=== PATIENT | female | born 1945 | race Caucasian/White ===

== ENCOUNTER 2021-11-01 11:59 | Outpatient (CLI) | payer MEDICARE, SELFPAY ==
[2021-11-01 13:21] LABS: Basophils % 0.5 %; Eosinophils # 0.1 10^3/uL (0.0-0.8); Eosinophils % 0.8 %; Hematocrit 24.5 % (37.0-47.0); Lymphocytes # 1.4 10^3/uL (0.8-4.8); Lymphocytes % 22.8 %; Mean Corpuscular HGB Conc 25.7 g/dL (30.0-36.0); Mean Corpuscular Hemoglobin 18.4 pg (28.0-34.0); Mean Corpuscular Volume 71.4 fl (81-99); Mean Platelet Volume 9.9 fL (7.4-10.4); Monocytes # 0.6 10^3/uL (0.2-0.9); Monocytes % 10.6 %; Neutrophils # 3.88 10^3/uL (1.8-7.7); Nucleated Red Blood Cells % 0.3 %; Platelet Count 228 10^3/cmm (130-400); Red Blood Count 3.43 10^6/uL (4.1-5.3); Red Cell Distribution Width 23.2 % (12.1-15.1)
[2021-11-01 13:41] LABS: Hemoglobin 6.3 g/dL (11.5-15.3)
== END 2021-11-01 12:00 | disposition home or self-care (01) ==
PROVIDERS: Family Provider Nurse Practitioner Family; PCP Nurse Practitioner Family; Visit Provider Internal Medicine
DX: D50.9 Iron deficiency anemia, unspecified (principal)
CPT/HCPCS: 85025

== ENCOUNTER 2021-11-24 13:32 | Outpatient (CLI) | payer MEDICARE, SELFPAY ==
[2021-11-24 14:42] LABS: Basophils % 0.6 %; Eosinophils # 0.2 10^3/uL (0.0-0.8); Eosinophils % 2.2 %; Hematocrit 22.4 % (37.0-47.0); Lymphocytes # 2.3 10^3/uL (0.8-4.8); Lymphocytes % 31.7 %; Mean Corpuscular HGB Conc 25.4 g/dL (30.0-36.0); Mean Corpuscular Volume 66.9 fl (81-99); Mean Platelet Volume 9.9 fL (7.4-10.4); Monocytes # 0.6 10^3/uL (0.2-0.9); Monocytes % 8.9 %; Neutrophils # 4.06 10^3/uL (1.8-7.7); Neutrophils % 56.3 %; Nucleated Red Blood Cells % 0.3 %; Platelet Count 327 10^3/cmm (130-400); Red Blood Count 3.35 10^6/uL (4.1-5.3); Red Cell Distribution Width 20.9 % (12.1-15.1); White Blood Count 7.2 10^3/uL (4.0-10.0)
[2021-11-24 15:05] LABS: Hemoglobin 5.7 g/dL (11.5-15.3)
== END 2021-11-24 13:33 | disposition home or self-care (01) ==
PROVIDERS: Family Provider Nurse Practitioner Family; PCP Nurse Practitioner Family; Visit Provider Internal Medicine
DX: D50.9 Iron deficiency anemia, unspecified (principal)
CPT/HCPCS: 85025

== ENCOUNTER → 2021-12-06 10:03 | Day surgery (SDC) | payer MEDICARE, SELFPAY ==
[2021-12-06 10:14] VITALS: BP 137/89; PULSE 94; RESP 18; TEMP 36.5; O2SAT 98
[2021-12-06] MEDS: ferric carboxy (IVPB) 750 MG in sodium chloride 0.9% (100 ml) 100 ML 345 MG IV (10:25)
== END ==
PROVIDERS: Family Provider Nurse Practitioner Family; PCP Nurse Practitioner Family; Visit Provider Internal Medicine
DX: D50.9 Iron deficiency anemia, unspecified (principal)
CPT/HCPCS: 96365; J1439

== ENCOUNTER → 2021-12-13 08:53 | Day surgery (SDC) | payer MEDICARE, SELFPAY ==
[2021-12-13 09:22] VITALS: BP 178/109; PULSE 95; RESP 18; TEMP 36.4; O2SAT 98
[2021-12-13] MEDS: ferric carboxy (IVPB) 750 MG in sodium chloride 0.9% (100 ml) 100 ML 345 MG IV (09:31)
== END ==
PROVIDERS: PCP Internal Medicine; Visit Provider Internal Medicine
DX: D50.9 Iron deficiency anemia, unspecified (principal)
CPT/HCPCS: 96365; J1439

== ENCOUNTER → 2022-09-01 09:50 | Day surgery (SDC) | payer MEDICARE, MEDICAID, SELFPAY ==
[2022-09-01 09:18] VITALS: BMI 37.3
[2022-09-01] MEDS: ferric carboxy (IVPB) 750 MG in sodium chloride 0.9% (100 ml) 100 ML 300 MG IV (10:43)
[2022-09-01 10:47] VITALS: BP 183/84; PULSE 87; RESP 18; TEMP 36.2; O2SAT 95
== END ==
PROVIDERS: PCP Internal Medicine; Visit Provider Internal Medicine
DX: D50.9 Iron deficiency anemia, unspecified (principal)
CPT/HCPCS: 96365; J1439

== ENCOUNTER → 2022-09-06 09:54 | Day surgery (SDC) | payer MEDICARE, MEDICAID, SELFPAY ==
[2022-09-06] MEDS: ferric carboxy (IVPB) 750 MG in sodium chloride 0.9% (100 ml) 100 ML 280 MG IV (10:28)
[2022-09-06 10:30] VITALS: BP 177/96; PULSE 82; RESP 18; TEMP 36.6; O2SAT 97
== END ==
PROVIDERS: PCP Internal Medicine; Visit Provider Internal Medicine
DX: D50.9 Iron deficiency anemia, unspecified (principal)
CPT/HCPCS: 96365; J1439

== ENCOUNTER 2022-11-05 07:41 | Emergency (ER) | payer MEDICARE, MEDICAID, SELFPAY ==
[2022-11-05] VITALS (9 sets, daily range): BP systolic 103–219; BP diastolic 57–154; PULSE 53–92; RESP 13–24; TEMP 36.4; O2SAT 90–96; BMI 31.8
--- NOTE | 2022-11-05 07:42 | ECG_ITS ---
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 Measurements Intervals [place] Rate: 62 P: 38 [place]: 190 QRS: -18 QRSD: 101 T: 60 QT: 438 QTc: 447 Interpretive Statements SINUS RHYTHM S1-S2-S3 PATTERN, CONSISTENT WITH PULMONARY DISEASE, RVH, OR NORMAL VARIANT VOLTAGE CRITERIA FOR LVH [MEETS CRITERIA IN ONE OF: R(aVL), S(V1), R(V5), R(V5/V6)+S(V1)] Compared to ECG 06/19/2018 02:03:56 Right ventricular hypertrophy now present Left ventricular hypertrophy now present Intraventricular conduction delay no longer present T-wave abnormality no longer present Electronically Signed On 11-06-2022 19:36:53 CDT by Alejandro Ramirez M.D. [id number]
--- NOTE | 2022-11-05 07:42 | XRR_ITS ---
PROCEDURE INFORMATION: Exam: XR Chest Exam date and time: 11/05/2022 7:55 AM Age: 77 years old Clinical indication: Cough and dyspnea; Additional info: Dyspnea/cough TECHNIQUE: Imaging protocol: Radiologic exam of the chest. Views: 1 view. COMPARISON: CR XR chest 1V [id number] 06/18/2018 9:21 PM FINDINGS: Lungs: Unremarkable. No consolidation. Pleural spaces: Unremarkable. No pleural effusion. No pneumothorax. Heart/Mediastinum: Large hiatal hernia. Mildly enlarged cardiac silhouette. Bones/joints: Unremarkable. XR/XR chest 1V portable [id number] IMPRESSION: Negative for acute pulmonary disease.
[2022-11-05 08:07] LABS: Basophils # 0.1 10^3/uL (0.0-0.1); Basophils % 0.7 %; Eosinophils # 0.3 10^3/uL (0.0-0.8); Eosinophils % 3.6 %; Hemoglobin 14.3 g/dL (11.5-15.3); Lymphocytes # 2.5 10^3/uL (0.8-4.8); Lymphocytes % 33.3 %; Mean Corpuscular HGB Conc 30.4 g/dL (30.0-36.0); Mean Corpuscular Hemoglobin 25.9 pg (28.0-34.0); Mean Corpuscular Volume 85.1 fl (81-99); Monocytes # 0.4 10^3/uL (0.2-0.9); Neutrophils # 4.34 10^3/uL (1.8-7.7); Neutrophils % 57.1 %; Nucleated Red Blood Cells % 0 %; Platelet Count 205 10^3/cmm (130-400); Red Blood Count 5.52 10^6/uL (4.1-5.3); Red Cell Distribution Width 22.2 % (12.1-15.1); White Blood Count 7.6 10^3/uL (4.0-10.0)
--- NOTE | 2022-11-05 08:07 | W.ED.CHESTPA ---
HPI - Chest Pain General: Chief Complaint: Chest Pain Stated Complaint: HYPERTENSION Time Seen by Provider: 11/05/22 07:42 Source: patient Mode of arrival: ambulatory History of Present Illness: 77-year-old female presents emergency room with complaint of elevated blood pressure generalized pain she had a mild chest pain this morning with no radiation no shortness of breath or nausea. States she has not had it before. She resides in retirement she does have a history of iron deficiency anemia she is morbidly obese. She has some chronic venous stasis edema no known history of coronary disease. No recent medication changes. Blood pressure is markedly elevated on arrival here. She denies any headache. Has no focal neurologic deficits. MD complaint: chest pain Onset: during rest Pain location: substernal Pain radiation: none Quality: heaviness Relieving factors: nothing Exacerbating factors: nothing Associated symptoms: Reports leg edema; Deny abdominal pain, diaphoresis, dyspnea, fever(s), nausea, palpitations, sense of impending doom, syncope or vomiting Review of Systems Const: Denies: fever(s) or diaphoresis ENMT: Denies: throat pain, ear or mastoid pain, nasal discharge or nasal congestion Card: Reports: chest pain, edema and swelling of feet/ankles; Denies: palpitations, irregular heart rhythm or syncope Resp: Denies: dyspnea GI: Denies: abdominal pain, nausea or vomiting : Denies: flank pain, difficulty voiding, dysuria, urinary frequency or urinary urgency Skin/Breast: Denies: rash or pruritus PFS ED PFSH: Medical History (Updated 11/05/22 @ 12:41 by Joe Lennon DO) Alzheimer disease Chronic kidney disease Hypertensive heart disease without heart failure Hypothyroidism Iron deficiency anemia Morbid obesity Primary osteoarthritis Physical Exam Const: COMMON NORMALS: no acute distress GENERAL APPEARANCE: cooperative and comfortable HENMT: COMMON NORMALS: normocephalic, atraumatic and hearing grossly normal bilaterally HEAD & SCALP: normocephalic and atraumatic Resp: COMMON NORMALS: normal respiratory effort, No retractions, No use of accessory muscles and clear to auscultation bilaterally AUSCULTATION: clear to auscultation bilaterally Cardio: COMMON NORMALS: regular rate, regular rhythm and No murmurs present (Cardio) RATE: regular rate RHYTHM: regular rhythm GI: COMMON NORMALS: Soft to palpation and No hepatosplenomegaly present AUSCULTATION: Yes normoactive bowel sounds PALPATION: Yes Soft to palpation, No Tenderness to palpation present (GI), No Guarding due to palpation present (GI) and Yes No hepatosplenomegaly present Extremity: COMMON NORMALS: normal to inspection, capillary refill normal and no calf tenderness GENERAL: Yes edema (2+ edema in the feet, ankles and lower leg midway to the knee) Skin: COMMON NORMALS: no rashes or lesions noted GENERAL SKIN EXAM: no rashes or lesions noted Course Vital Signs: Vital signs: Vital Signs Temperature 97.6 F 11/05/22 07:42 Pulse Rate 92 11/05/22 14:10 Respiratory Rate 18 11/05/22 14:10 Blood Pressure 165/93 11/05/22 14:10 Pulse Oximetry 93 11/05/22 14:10 Oxygen Delivery Me thod 11/05/22 07:42 MDM - Chest Pain Medical Decision Making Labs imaging and EKG reviewed. EKG showed no acute changes. Discussed with patient will adjust blood pressure medications increase amlodipine to 10 mg daily and add metoprolol 25 p.o. daily. follow-up with her primary care doc within the next week. Return if she has further problems. Medical Records I reviewed the patient's medical records. Lab Data I reviewed the patient's lab results. 11/05/22 07:55 11/05/22 07:55 Radiology Impressions Chest X-Ray 11/05/22 07:42 IMPRESSION: Negative for acute pulmonary disease. Laboratory Results WBC 7.6 10^3/uL (4.0-10.0) 11/05/22 07:55 RBC 5.52 10^6/uL (4.1-5.3) H 11/05/22 07:55 Hgb 14.3 g/dL (11.5-15.3) 11/05/22 07:55 Hct 47.0 % (37.0-47.0) 11/05/22 07:55 MCV 85.1 fl (81-99) 11/05/22 07:55 MCH 25.9 pg (28.0-34.0) L 11/05/22 07:55 MCHC 30.4 g/dL (30.0-36.0) 11/05/22 07:55 RDW 22.2 % (12.1-15.1) H 11/05/22 07:55 Plt Count 205 10^3/cmm (130-400) 11/05/22 07:55 MPV 11.0 fL (7.4-10.4) H 11/05/22 07:55 Neut % (Auto) 57.1 % 11/05/22 07:55 Lymph % (Auto) 33.3 % 11/05/22 07:55 [place] % (Auto) 5.0 % 11/05/22 07:55 Eos % (Auto) 3.6 % 11/05/22 07:55 Baso % (Auto) 0.7 % 11/05/22 07:55 Neut # (Auto) 4.34 10^3/uL (1.8-7.7) 11/05/22 07:55 Lymph # (Auto) 2.5 10^3/uL (0.8-4.8) 11/05/22 07:55 [place] # (Auto) 0.4 10^3/uL (0.2-0.9) 11/05/22 07:55 Eos # (Auto) 0.3 10^3/uL (0.0-0.8) 11/05/22 07:55 Baso # (Auto) 0.1 10^3/uL (0.0-0.1) 11/05/22 07:55 Nucleated RBC % (auto) 0 % 11/05/22 07:55 Nucleated RBCs # 0.0 /100WBC 11/05/22 07:55 Sodium 139 mmol/L (136-145) 11/05/22 07:55 Potassium 4.5 mmol/L (3.5-5.1) 11/05/22 07:55 Chloride 102 mmol/L (98-107) 11/05/22 07:55 Carbon Dioxide 28 mmol/L (22-29) 11/05/22 07:55 Anion Gap 13.5 (5-19) 11/05/22 07:55 BUN 14 mg/dL (8-23) 11/05/22 07:55 Creatinine 0.8 mg/dL (0.5-0.9) 11/05/22 07:55 GFR Calculation Not Reportable 11/05/22 07:55 Glucose 105 mg/dL (65-115) 03/11/23 07:55 Calculated Osmolality 289 mOsm/kg (285-295) 11/05/22 07:55 Calcium 9.7 mg/dL (8.5-10.5) 11/05/22 07:55 Total Bilirubin 0.2 mg/dL (0.15-1.2) 11/05/22 07:55 AST 17 U/L (0-32) 11/05/22 07:55 ALT 11 U/L (0-33) 11/05/22 07:55 Alkaline Phosphatase 88 U/L (35-105) 11/05/22 07:55 Troponin T Gen 5 ng/L 20 ng/L (0-10) H 11/05/22 07:55 Troponin T Baseline 16 ng/L (0-10) H 11/05/22 09:03 Troponin T 120 Minute 16.22 ng/L (0-10) H 11/05/22 11:34 Delta Troponin T 0.22 ABS# (0-10) 11/05/22 11:34 Total Protein 7.4 g/dL (6.6-8.7) 11/05/22 07:55 Albumin 4.0 g/dL (3.5-5.2) 11/05/22 07:55 Globulin 3.4 g/dL (1.3-4.6) 11/05/22 07:55 Discharge Plan Discharge Patient Disposition: Home Clinical Impression: Atypical chest pain, Benign essential HTN Condition: Stable Prescriptions: New amlodipine 10 mg tablet 10 mg PO DAILY Qty: 30 0RF Toprol XL 25 mg tablet extended release 24 hr 25 mg PO DAILY Qty: 30 0RF Discontinued amlodipine 5 mg Tablet 5 mg PO DAILY No Action tramadol 50 mg tablet 50 mg PO Q12H PRN (Reason: Pain) levothyroxine 125 mcg Tablet 125 mcg PO DAILY nystatin-triamcinolone 100,000-0.1 unit/g-% cream 1 applic TOPICAL TID albuterol sulfate 90 mcg/actuation HFA aerosol inhaler 2 puff INHALATION Q4H PRN (Reason: Wheezing) acetaminophen 325 mg Tablet 650 mg PO Q4H PRN (Reason: Pain) acetaminophen 325 mg Tablet 650 mg PO BID Senna-S 8.6-50 mg Tablet 1 tab-cap PO DAILY PRN (Reason: Constipation) Milk of Magnesia 400 mg/5 mL Suspension 30 ml PO DAILY PRN (Reason: Constipation) bisacodyl 10 mg Suppository 10 mg NE DAILY PRN (Reason: Constipation) Tums 200 mg calcium (500 mg) Tablet,Chewable 200 mg PO QID PRN (Reason: Heartburn) Enema 19-7 gram/118 mL Enema 118 ml NE DAILY PRN (Reason: Constipation) Nyamyc 100,000 unit/gram Powder 1 applic TOPICAL Q12H PRN (Reason: Rash) Miralax 17 gram/dose Powder 17 g PO DAILY PRN (Reason: Constipation) duloxetine 30 mg Capsule, Delayed Rel Sprinkle 30 mg PO DAILY Discharge Orders: Discharge ED (Routine); Ordered 11/05/22 Ordered By: Joe Lennon Referrals: Sean Warren DO [Primary Care Provider] - Discharge Diet: Usual diet Discharge Activity: Increase activity as tolerated Patient Instructions: Opioid Safety, Pain Management Activity Restrictions/Additional Instructions: You are seen today for chest pain. Your EKG and cardiac enzymes did not show any evidence of acute myocardial infarction. Blood pressure is elevated will increase amlodipine and add Toprol-XL and recheck with your primary care doctor within the week. Coding Level of Care Code ED Instructional Technology Teacher for Davion Pereira
[2022-11-05] MEDS: hydroCHLOROthiazide 25 mg Tablet 12.5 MG PO (08:12)
[2022-11-05] MEDS: hyDRALAzine 20 mg/mL INJ 1 mL 10 MG IVP (08:12)
[2022-11-05] MEDS: lisinopril 20 mg Tablet PO (08:12)
[2022-11-05] MEDS: amlodipine 5 mg Tablet PO (08:13)
[2022-11-05 08:29] LABS: Alanine Aminotransferase 11 U/L (0-33); Alkaline Phosphatase 88 U/L (35-105); Anion Gap 13.5 (5-19); Aspartate Amino Transferase 17 U/L (0-32); Blood Urea Nitrogen 14 mg/dL (8-23); Calcium 9.7 mg/dL (8.5-10.5); Carbon Dioxide 28 mmol/L (22-29); Chloride 102 mmol/L (98-107); Globulin 3.4 g/dL (1.3-4.6); Glucose 105 mg/dL (65-115); Osmolality Calculated 289 mOsm/kg (285-295); Potassium 4.5 mmol/L (3.5-5.1); Sodium 139 mmol/L (136-145); Total Bilirubin 0.2 mg/dL (0.15-1.2); Total Protein 7.4 g/dL (6.6-8.7)
[2022-11-05 09:28] LABS: Troponin(5th) Baseline 16 ng/L (0-10)
--- NOTE | 2022-11-05 10:11 | ECG_ITS ---
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 Measurements Intervals [place] Rate: 73 P: 28 [place]: 188 QRS: -33 QRSD: 103 T: 62 QT: 419 QTc: 464 Interpretive Statements SINUS RHYTHM WITH SINUS ARRHYTHMIA VOLTAGE CRITERIA FOR LVH [MEETS CRITERIA IN ONE OF: R(aVL), S(V1), R(V5), R(V5/V6)+S(V1)] Compared to ECG 11/05/2022 08:11:27 Right ventricular hypertrophy no longer present Electronically Signed On 11-06-2022 23:15:46 CDT by Alejandro Ramirez M.D. [id number]
[2022-11-05 12:04] LABS: Troponin T (5th) Once 20 ng/L (0-10)
[2022-11-05 12:10] LABS: Troponin 5 2HR 16.22 ng/L (0-10)
[2022-11-05 12:13] LABS: Troponin 5 2HR Delta 0.22 ABS# (0-10)
== END 2022-11-05 14:16 | disposition home or self-care (01) ==
PROVIDERS: Emergency Provider Family Medicine; PCP Internal Medicine
DX: R07.89 Other chest pain (principal); I12.9 Hypertensive chronic kidney disease with stage 1 through stage 4 chronic kidney disease, or unspecified chronic kidney disease; N18.9 Chronic kidney disease, unspecified; E03.9 Hypothyroidism, unspecified; E66.01 Morbid (severe) obesity due to excess calories; Z68.31 Body mass index [BMI] 31.0-31.9, adult
CPT/HCPCS: 71045; 80053; 84484; 85025; 93005; 96374; 99285; J0360

== ENCOUNTER 2024-10-17 21:06 | Inpatient (IN) | payer MEDICARE, MEDICAID, SELFPAY ==
[2024-10-17] VITALS (7 sets, daily range): BP systolic 157–176; BP diastolic 83–101; PULSE 103–111; RESP 13–24; O2SAT 92–95; BMI 17.6
--- NOTE | 2024-10-17 21:11 | XRR_ITS ---
PROCEDURE INFORMATION: Exam: XR Chest Exam date and time: 10/17/2024 9:16 PM Age: 79 years old Clinical indication: Shortness of breath; Additional info: Altered mental status TECHNIQUE: Imaging protocol: Radiologic exam of the chest. Views: 1 view. COMPARISON: CR XR chest 1V portable [id number] 11/05/2022 7:55 AM FINDINGS: Lungs: Mild pulmonary edema. Bibasilar lung opacities could relate to atelectasis, effusions, or pneumonia. Pleural spaces: No pneumothorax. Heart/Mediastinum: Mildly enlarged pericardial silhouette. Bones/joints: Unremarkable. XR/XR chest 1V portable [id number] IMPRESSION: 1. Bibasilar lung opacities could relate to atelectasis, effusions, or pneumonia, worse on the left. 2. Mild pulmonary edema. 3. Mildly enlarged pericardial silhouette.
--- NOTE | 2024-10-17 21:15 | ECG_ITS ---
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1945 Requested By: Roderick Carbone Order Number: [id number] Enedina MD: RIKKI SIDDIQUI Measurements Intervals [place] Rate: 105 P: 39 NE: 160 QRS: -37 QRSD: 112 T: 71 QT: 345 QTc: 457 Interpretive Statements SINUS TACHYCARDIA MODERATE VOLTAGE CRITERIA FOR LVH, CONSIDER NORMAL VARIANT [MEETS CRITERIA IN ONE OF: R(aVL), S(V1), R(V5), R(V5/V6)+S(V1)] INFERIOR MYOCARDIAL INFARCTION , PROBABLY OLD [40+ ms Q WAVE AND/OR ST/T ABNORMALITY IN II/aVF] PROBABLE ANTEROLATERAL MYOCARDIAL INFARCTION , PROBABLY OLD [35 ms Q WAVE IN I/aVL/V3-V6] Compared to ECG 11/05/2022 10:11:36 Myocardial infarct finding now present Sinus rhythm no longer present Sinus arrhythmia no longer present Electronically Signed On 10-22-2024 23:44:54 CENTER DIRECTOR LEAD TEACHER by RIKKI SIDDIQUI [id number]
--- NOTE | 2024-10-17 21:15 | W.ED.AMS ---
HPI - Altered Mental Status General: Chief Complaint: Fever Stated Complaint: FEVER Time Seen by Provider: 10/17/24 21:08 Source: EMS Mode of arrival: EMS Limitations: altered mental status History of Present Illness: Patient brought in from custodial by EMS with complaints of altered mental status and fever. Patient does have a diagnosis of Alzheimer's dementia but per nursing is usually alert and oriented x 4. Today patient is confused and cannot answer most questions appropriately. Patient does have a history of UTIs per EMS. Related Data Home Medications ?Medication ?Instructions ?Recorded ?Confirmed albuterol sulfate 90 mcg/actuation 2 puff inhalation Q4H PRN Wheezing 12/06/21 11/05/22 aerosol inhaler levothyroxine 125 mcg tablet 125 mcg PO DAILY 12/06/21 11/05/22 nystatin-triamcinolone 100,000 1 applic topical TID 12/06/21 11/05/22 unit/g-0.1 % topical cream tramadol 50 mg tablet 50 mg PO Q12H PRN Pain 12/06/21 11/05/22 acetaminophen 325 mg tablet 650 mg PO BID 11/05/22 11/05/22 acetaminophen 325 mg tablet 650 mg PO Q4H PRN Pain 11/05/22 11/05/22 bisacodyl 10 mg rectal suppository 10 mg AK DAILY PRN Constipation 11/05/22 11/05/22 calcium carbonate (Tums) 200 mg PO QID PRN Heartburn 11/05/22 11/05/22 duloxetine 30 mg capsule,delayed 30 mg PO DAILY 11/05/22 11/05/22 release sprinkle magnesium hydroxide 400 mg/5 mL 30 ml PO DAILY PRN Constipation 11/05/22 11/05/22 oral suspension (Milk of Magnesia) nystatin 100,000 unit/gram topical 1 applic topical Q12H PRN Rash 11/05/22 11/05/22 powder (Nyamyc) polyethylene glycol 3350 17 17 g PO DAILY PRN Constipation 11/05/22 11/05/22 gram/dose oral powder (Miralax) sennosides 8.6 mg-docusate sodium 1 tab-cap PO DAILY PRN Constipation 11/05/22 11/05/22 50 mg tablet (Senna-S) sodium phosphates 19 gram-7 118 ml AK DAILY PRN Constipation 11/05/22 11/05/22 gram/118 mL enema (Enema) Previous Rx's ?Medication ?Instructions ?Recorded amlodipine 10 mg tablet 10 mg PO DAILY #30 tabs 11/05/22 metoprolol succinate 25 mg 25 mg PO DAILY #30 tabs 11/05/22 tablet,extended release 24 hr (Toprol XL) Allergies Allergy/AdvReac Type Severity Reaction Status Date / Time No Known Allergies Allergy Verified 09/06/22 07:33 Review of Systems General: Reports: ROS unobtainable due to mental status PFSH ED PFSH: Medical History Iron deficiency anemia Alzheimer disease Hypothyroidism Chronic kidney disease Morbid obesity Hypertensive heart disease without heart failure Primary osteoarthritis Physical Exam Const: COMMON NORMALS: no acute distress, average body habitus, healthy appearing, alert and well nourished HENMT: COMMON NORMALS: normocephalic, atraumatic, hearing grossly normal bilaterally, external ears normal, Normal external nose present, moist oral mucous membranes and oropharynx normal HEAD & SCALP: normocephalic and atraumatic NOSE: Normal external nose present EXTERNAL EAR: Yes external ears normal Neck/C-Spine: COMMON NORMALS: no JVD Chest: COMMONS NORMALS: normal inspection of the chest and normal palpation of entire chest wall Resp: COMMON NORMALS: normal respiratory effort, No retractions, No use of accessory muscles and clear to auscultation bilaterally AUSCULTATION: clear to auscultation bilaterally Cardio: COMMON NORMALS: no JVD, regular rate, regular rhythm, S1 normal heart sound present, S2 normal heart sound present, No gallops present (Cardio), No clicks present (Cardio), No murmurs present (Cardio) and No rub (Cardio) RATE: regular rate RHYTHM: regular rhythm HEART SOUNDS: S1 normal heart sound present and S2 normal heart sound present GI: COMMON NORMALS: Normal to inspection, nondistended, normoactive bowel sounds present, Soft to palpation, non-tender, No hepatosplenomegaly present and no masses PALPATION: Yes Soft to palpation and Yes No hepatosplenomegaly present Extremity: NARRATIVE EXTREMITY EXAM: 1+ pitting edema bilateral lower extremities Neuro: SENSORIUM/ORIENTATION: Yes alert Course Vital Signs: Vital signs: Vital Signs Pulse Rate 104 H 10/17/24 23:00 Respiratory Rate 13 10/17/24 23:00 Blood Pressure 165/83 10/17/24 23:00 Pulse Oximetry 93 10/17/24 23:00 Oxygen Delivery Me thod Nasal Cannula 10/17/24 22:17 Oxygen Flow Rate 1 10/17/24 22:17 MDM - Altered Mental Status Medical Decision Making X-ray shows bibasilar lung opacities consistent with atelectasis effusion or pneumonia, mild pulmonary edema, white blood cell count 16.7, baseline troponin 14, TSH 1.3, lactic acid 2.2, urinalysis positive for white blood cells leukocyte Estrace, negative for influenza RSV and COVID. Patient was given 3.375 g of Zosyn, blood cultures and urine cultures obtained. Discussed patient with Dr. Madrid we will place patient in [facility] for further evaluation treatment. Medical Records I reviewed the patient's medical records. Lab Data I reviewed the patient's lab results. 10/17/24 21:47 10/17/24 22:49 Radiology Impressions Chest X-Ray 10/17/24 21:11 IMPRESSION: 1. Bibasilar lung opacities could relate to atelectasis, effusions, or pneumonia, worse on the left. 2. Mild pulmonary edema. 3. Mildly enlarged pericardial silhouette. Laboratory Results WBC 16.70 10^3/uL (3.29-11.43) H 10/17/24 21:47 RBC 4.62 10^6/uL (3.85-5.65) 10/17/24 21:47 Hgb 12.10 g/dL (11.27-16.99) 10/17/24 21:47 Hct 40.7 % (36-47) 10/17/24 21:47 MCV 88.1 fl (85-98) 10/17/24 21:47 MCH 26.2 pg (27-33) L 10/17/24 21:47 MCHC 29.7 g/dL (30-55) L 10/17/24 21:47 RDW 18.9 % (12.1-15.1) H 10/17/24 21:47 Plt Count 181 10^3/cmm (157-399) 10/17/24 21:47 MPV 11.7 fL (7.4-10.4) H 10/17/24 21:47 Neut % (Auto) 88.3 % 10/17/24 21:47 Lymph % (Auto) 5.8 % 10/17/24 21:47 [place] % (Auto) 4.9 % 10/17/24 21:47 Eos % (Auto) 0.2 % 10/17/24 21:47 Baso % (Auto) 0.2 % 10/17/24 21:47 Neut # (Auto) 14.73 10^3/uL (1.8-7.7) H 10/17/24 21:47 Lymph # (Auto) 1.0 10^3/uL (0.8-4.8) 10/17/24 21:47 [place] # (Auto) 0.8 10^3/uL (0.2-0.9) 10/17/24 21:47 Eos # (Auto) 0.0 10^3/uL (0.0-0.8) 10/17/24 21:47 Baso # (Auto) 0.0 10^3/uL (0.0-0.1) 10/17/24 21:47 Nucleated RBC % (auto) 0 % 10/17/24 21:47 Nucleated RBCs # 0.0 /100WBC 10/17/24 21:47 Sodium 134 mmol/L (136-145) L 10/17/24 22:49 Potassium 4.4 mmol/L (3.5-5.1) 10/17/24 22:49 Chloride 96 mmol/L (98-107) L 10/17/24 22:49 Carbon Dioxide 25 mmol/L (22-29) 10/17/24 22:49 Anion Gap 17.4 (5-19) 10/17/24 22:49 BUN 13 mg/dL (8-23) 10/17/24 22:49 Creatinine 0.9 mg/dL (0.5-0.9) 10/17/24 22:49 GFR Calculation Not Reportable 10/17/24 22:49 Glucose 231 mg/dL (65-115) H 10/17/24 22:49 Calculated Osmolality 285 mOsm/kg (285-295) 10/17/24 22:49 Lactic Acid 2.2 mmol/L (0.5-2.2) 10/17/24 21:47 Calcium 9.9 mg/dL (8.5-10.5) 10/17/24 22:49 Magnesium 1.8 mg/dL (1.7-2.3) 10/17/24 22:49 Total Bilirubin 0.4 mg/dL (0.15-1.2) 10/17/24 22:49 AST 13 U/L (0-32) 10/17/24 22:49 ALT 9 U/L (0-33) 10/17/24 22:49 Alkaline Phosphatase 88 U/L (35-105) 10/17/24 22:49 Troponin T Baseline 14 ng/L (0-10) H 10/17/24 21:47 Total Protein 7.5 g/dL (6.6-8.7) 10/17/24 22: Albumin 4.2 g/dL (3.5-5.2) 10/17/24 22:49 Globulin 3.3 g/dL (1.3-4.6) 10/17/24 22:49 Procalcitonin 0.26 ng/mL (0-0.5) 10/17/24 22:49 TSH 1.36 uIU/mL (0.27-4.20) 10/17/24 22:49 Urine Color Yellow (Yellow) 10/17/24 21:41 Urine Appearance Turbid (CLEAR) A 10/17/24 21:41 Urine pH 6.5 (5-7) 10/17/24 21:41 Ur Specific [place] 1.018 (1.005-1.030) 10/17/24 21:41 Urine Protein Trace (Negative) A 10/17/24 21:41 Urine Glucose (UA) Trace (Normal) H 10/17/24 21:41 Urine Ketones Negative (Negative) 10/17/24 21: Urine Blood 1+ (Negative) A 10/17/24 21: Urine Nitrate Negative (Negative) 10/17/24 21: Urine Bilirubin Negative (Negative) 10/17/24 21: Urine Urobilinogen 1.0 mg/dL (Negative) 10/17/24 21:41 Ur Leukocyte Esterase 1+ (Negative) A 10/17/24 21:41 Urine RBC 3-5 /hpf (0-2) 10/17/24 21:41 Urine WBC 40-55 /hpf (0-5) H 02/20/25 21:41 Ur Squamous Epith Cells None /hpf (0-5) 10/17/24 21:41 Amorphous Sediment Not Reportable 10/17/24 21:41 Urine Bacteria 4+ /hpf (NONE) H 10/17/24 21:41 Influenza A (PCR) Negative (Negative) 10/17/24 22:15 Influenza Type B (PCR) Negative (Negative) 10/17/24 22:15 RSV (PCR) Negative (Negative) 10/17/24 22:15 SARS-CoV-2 (PCR) Negative (Negative) 10/17/24 22:15 All radiology interpretation(s) finalized by discharge Discharge Plan Discharge Patient Disposition: Admitted As Inpatient Clinical Impression: Acute alteration in mental status Bilateral pneumonia Qualifiers: Pneumonia type: due to unspecified organism Lung location: unspecified part of lung Qualified Code(s): J18.9 - Pneumonia, unspecified organism Urinary tract infection Qualifiers: Urinary tract infection type: acute cystitis Hematuria presence: with hematuria Qualified Code(s): N30.01 - Acute cystitis with hematuria Condition: Stable Coding Level of Care Code ED Pipe Bowl Paint Trimmer for Davion Pereira
[2024-10-17 21:58] LABS: Bilirubin Urine Negative (Negative); Blood Urine 1+ (Negative); Glucose Urine UA Trace (Normal); Ketones Urine Negative (Negative); Leukocyte Esterase Urine 1+ (Negative); Nitrate Urine Negative (Negative); Protein Urine Trace (Negative); Specific Gravity, Urine 1.018 (1.005-1.030); Urine Appearance Turbid (CLEAR); Urine Color Yellow (Yellow); pH Urine 6.5 (5-7)
[2024-10-17 22:16] LABS: Add Urine Microscopic? YES; Bacteria Urine 4+ /hpf; UA Manual Slide Review YES; UA Slide Review UA Slide Review Perf; WBC Urine 40-55 /hpf (0-5)
[2024-10-17 22:16] LABS: Basophils % 0.2 %; Eosinophils % 0.2 %; Hematocrit 40.7 % (36-47); Lymphocytes % 5.8 %; Mean Corpuscular HGB Conc 29.7 g/dL (30-55); Mean Corpuscular Hemoglobin 26.2 pg (27-33); Mean Corpuscular Volume 88.1 fl (85-98); Mean Platelet Volume 11.7 fL (7.4-10.4); Monocytes # 0.8 10^3/uL (0.2-0.9); Monocytes % 4.9 %; Neutrophils # 14.73 10^3/uL (1.8-7.7); Neutrophils % 88.3 %; Nucleated Red Blood Cells % 0 %; Platelet Count 181 10^3/cmm (157-399); Red Blood Count 4.62 10^6/uL (3.85-5.65); Red Cell Distribution Width 18.9 % (12.1-15.1); Troponin(5th) Baseline 14 ng/L (0-10)
[2024-10-17 22:19] LABS: Add Urine Culture? Yes
[2024-10-17 22:20] LABS: Lactic Sepsis W/Reflex 2.2 mmol/L (0.5-2.2)
[2024-10-17 22:57] LABS: Influenza A NEGATIVE (Negative); Influenza B NEGATIVE (Negative); Respiratory Syncytial Virus Ce NEGATIVE (Negative); SARS-CoV-2 PCR NEGATIVE (Negative)
[2024-10-17 23:35] LABS: Procalcitonin 0.26 ng/mL (0-0.5); Thyroid Stimulating Hormone 1.36 uIU/mL (0.27-4.20)
[2024-10-17 23:41] LABS: Reflex Lactate Order REFLEX LACTIC ORDERD
[2024-10-17 23:46] LABS: Alanine Aminotransferase 9 U/L (0-33); Albumin Level 4.2 g/dL (3.5-5.2); Alkaline Phosphatase 88 U/L (35-105); Anion Gap 17.4 (5-19); Aspartate Amino Transferase 13 U/L (0-32); Blood Urea Nitrogen 13 mg/dL (8-23); Calcium 9.9 mg/dL (8.5-10.5); Carbon Dioxide 25 mmol/L (22-29); Chloride 96 mmol/L (98-107); Creatinine Clr Calc Pharmacy 38.3737; Globulin 3.3 g/dL (1.3-4.6); Glucose 231 mg/dL (65-115); Magnesium 1.8 mg/dL (1.7-2.3); Osmolality Calculated 285 mOsm/kg (285-295); Potassium 4.4 mmol/L (3.5-5.1); Sodium 134 mmol/L (136-145); Total Bilirubin 0.4 mg/dL (0.15-1.2); Total Protein 7.5 g/dL (6.6-8.7)
[2024-10-17] MEDS: piperacillin-tazobactam 3.375 GM in sodium chloride 0.9% (plus) 50 ML IV (23:54)
--- NOTE | 2024-10-17 23:56 | PM.HP ---
Providers/Chief Complaint Primary Care Provider: Sean Warren DO Chief Complaint: FEVER History of Present Illness Kelsi Zamora is a 79 year old female with history of hypertension, hypothyroidism, resident of [facility] presented for fever lethargy fatigue generalized weakness. Patient refused her dinner because she was very lethargic. She was sent to the hospital for further evaluation. Temperature noted was around 101 at the senior living, she is tachypneic tachycardic with leukocytosis without endorgan damage, she meets criteria for sepsis, I will give her septic bolus she has been given antibiotics blood and urine culture taken as per her weight she would need 1300 mL of septic bolus however considering signs of pulm edema on chest x-ray I will give her 500 mL IV fluids only, she is normotensive, oriented to herself only no skin mottling UA consistent with UTI: Caballero catheter has been placed Review of Systems General: Reports: ROS unobtainable due to mental status Const: Reports: fever(s) Eyes: Denies: change in vision ENMT: Denies: throat pain Card: Denies: chest pain Resp: Reports: dyspnea Medications/Allergies Home Medications ?Medication ?Instructions ?Recorded ?Confirmed ?Last Taken ?Type albuterol sulfate 90 mcg/actuation 2 puff inhalation Q4H PRN Wheezing 12/06/21 11/05/22 09/06/22 History aerosol inhaler levothyroxine 125 mcg tablet 125 mcg PO DAILY 12/06/21 11/05/22 09/06/22 History nystatin-triamcinolone 100,000 1 applic topical TID 12/06/21 11/05/22 09/06/22 History unit/g-0.1 % topical cream tramadol 50 mg tablet 50 mg PO Q12H PRN Pain 12/06/21 11/05/22 09/06/22 History acetaminophen 325 mg tablet 650 mg PO BID 11/05/22 11/05/22 Unknown History acetaminophen 325 mg tablet 650 mg PO Q4H PRN Pain 11/05/22 11/05/22 Unknown History amlodipine 10 mg tablet 10 mg PO DAILY #30 tabs 11/05/22 Unknown Rx bisacodyl 10 mg rectal suppository 10 mg ID DAILY PRN Constipation 11/05/22 11/05/22 Unknown History calcium carbonate (Tums) 200 mg PO QID PRN Heartburn 11/05/22 11/05/22 Unknown History duloxetine 30 mg capsule,delayed 30 mg PO DAILY 11/05/22 11/05/22 Unknown History release sprinkle magnesium hydroxide 400 mg/5 mL 30 ml PO DAILY PRN Constipation 11/05/22 11/05/22 Unknown History oral suspension (Milk of Magnesia) metoprolol succinate 25 mg 25 mg PO DAILY #30 tabs 11/05/22 Unknown Rx tablet,extended release 24 hr (Toprol XL) nystatin 100,000 unit/gram topical 1 applic topical Q12H PRN Rash 11/05/22 11/05/22 Unknown History powder (Nyamyc) polyethylene glycol 3350 17 17 g PO DAILY PRN Constipation 11/05/22 11/05/22 Unknown History gram/dose oral powder (Miralax) sennosides 8.6 mg-docusate sodium 1 tab-cap PO DAILY PRN Constipation 11/05/22 11/05/22 Unknown History 50 mg tablet (Senna-S) sodium phosphates 19 gram-7 118 ml ID DAILY PRN Constipation 11/05/22 11/05/22 Unknown History gram/118 mL enema (Enema) Allergies Allergy/AdvReac Type Severity Reaction Status Date / Time No Known Allergies Allergy Verified 09/06/22 07:33 PFSH Acute PFSH: Medical History Major depressive disorder Overactive bladder Constipation Edema Pain, unspecified Iron deficiency anemia Alzheimer disease Hypothyroidism Chronic kidney disease Morbid obesity Hypertensive heart disease without heart failure Primary osteoarthritis Vitals/I&O/Wt Last Vital Signs Pulse 104 H 10/17/24 23:00 Resp 13 10/17/24 23:00 BP 165/83 10/17/24 23:00 Pulse Ox 93 10/17/24 23:00 O2 Del Method Nasal Cannula 10/17/24 22:17 O2 Flow Rate 1 10/17/24 22:17 10/17/24 10/17/24 10/18/24 14:59 22:59 06:59 Intake Total 0 / 0 Balance 0 / 0 Weight last 48 hrs Weight 45.359 kg Physical Exam Narrative: Patient is oriented to herself Hypertensive Currently on room air No active focal deficit Very sensitive to touch to her lower extremities Nonpitting edema Abdomen distended nontender No audible stridor S1, S2 tachycardia Patient able to follow commands however short attention span Patient not able to tell me her date of stating that she is not sure why she was sent to the hospital Complaining of hurting all over Sepsis: Is patient septic: Yes Focused sepsis exam performed: Yes Focused sepsis exam: Metabolic encephalopathy Cap refill less than 3 seconds Peripheral pulses intact no neurovascular compromise No sign of stroke No skin mottling Patient is tachycardic heart rate 104 sinus tachycardia Hypertensive Patient is currently on room air at the time of my evaluation Date exam was performed: 10/18/24 Time exam was performed: 00:20 Data 10/17/24 21:47 10/17/24 22:49 A&P Assessment and plan (1) Urinary tract infection: Qualifiers: Hematuria presence: with hematuria Urinary tract infection type: acute cystitis Qualified Code(s): N30.01 - Acute cystitis with hematuria (2) Acute alteration in mental status: (3) CHF exacerbation: (4) Bilateral pneumonia: Qualifiers: Lung location: unspecified part of lung Pneumonia type: due to unspecified organism Qualified Code(s): J18.9 - Pneumonia, unspecified organism (5) Sepsis: (6) New onset of congestive heart failure: Plan Altered mental status Metabolic encephalopathy related to sepsis, UTI and possible pneumonia Confused AO x [address] head Sepsis Criteria met with tachypnea tachycardia fever at the senior living Source seems to be UTI Considering CHF, only 500 mL IV fluid bolus given New onset CHF I do not see any previous echo: She has pulm edema, enlarged cardiac silhouette some edema of lower extremities Monitor urine output, start low-dose Lasix Requested echo Troponin with serial EKGs EKG not showing infarctive changes UTI Start ceftriaxone Abnormal UA noted Caballero catheter placed in the ER Possible pneumonia? I do believe her x-ray bilateral infiltrates are related to CHF, will request procalcitonin Will keep patient on doxycycline along ceftriaxone Respiratory panel is negative DNR/DNI as per the records from the senior living Will keep her on cardiac diet DVT prophylaxis: Heparin PDMP PDMP Reviewed: Not Reviewed Attestations Medical Necessity Statement*: More than 2 midnights anticipated for management evaluation of sepsis, new onset CHF Diagnoses Urinary tract infection N30.01 Hematuria presence: with hematuria Urinary tract infection type: acute cystitis Acute alteration in mental status R41.82 CHF exacerbation I50.9 Bilateral pneumonia J18.9 Lung location: unspecified part of lung Pneumonia type: due to unspecified organism Sepsis A41.9 New onset of congestive heart failure I50.9
[2024-10-18] VITALS (13 sets, daily range): BP systolic 152–181; BP diastolic 83–130; PULSE 86–105; RESP 11–23; TEMP 36.6–37; O2SAT 91–100
[2024-10-18 00:12] LABS: Troponin 5 2HR 13.59 ng/L (0-10)
[2024-10-18 00:15] LABS: Lactic Acid level (Lactate) 2.2 mmol/L (0.5-2.2)
--- NOTE | 2024-10-18 00:15 | USCV_ITS ---
Kelsi Zamora Age: 79 Gender: F : 1945 Exam Date: 10/18/2024 00:49 Ordering Phys: Jase Madrid MD Technologist: PAULA Exam Location: [facility] [place] Indication: HTN, fever 101F, letharby fatigue, weakness, obesity BP: 176 / 101 HR: 93 Rhythm: Sinus Technical Quality: Adequate MEASUREMENTS (Male / Female) Normal Values 2D ECHO LV Diastolic Diameter PLAX 4.0 cm 4.2 - 5.9 / 3.9 - 5.3 cm IVS Diastolic Thickness 1.6 cm 0.6 - 1.0 / 0.6 - 0.9 cm IVS Systolic Thickness 2.0 cm LVPW Diastolic Thickness 1.3 cm 0.6 - 1.0 / 0.6 - 0.9 cm LVPW Systolic Thickness 1.6 cm LVOT Diameter 1.9 cm LV Ejection Fraction 2D Teich 55.9 % LV Ejection Fraction MOD 4C 59.1 % LV Ejection Fraction MOD 2C 40.9 % LV Ejection Fraction 2C AL 40.6 % LA Diameter 3.6 cm Aorta at Sinotubular Diameter 2.9 cm IVC Diameter 1.1 cm M-MODE LA Ao Ratio MM 1.1 AV Cusp Separation MM 1.8 cm DOPPLER AV Peak Velocity 147.0 cm/s LVOT Peak Velocity 77.0 cm/s AV Area Cont Eq vti 1.8 cm squared AV Area Cont Eq pk 1.5 cm squared MV Peak Velocity 134.0 cm/s MV Area PHT 6.8 cm squared Mitral E to A Ratio 0.6 TV Peak E Velocity 78.0 cm/s FINDINGS Left Ventricle Left ventricle is normal in size. LV systolic function is normal with EF 55-60%. No regional wall motion abnormalities are seen. Grade 1 diastolic dysfunction. Right Ventricle Normal in size and function Right Atrium Normal in size Left Atrium Normal in size Mitral Valve Structurally normal mitral valve. Mild mitral regurgitation. Aortic Valve Structurally normal aortic valve. No significant stenosis or regurgitation. Tricuspid Valve Insufficient TR jet to calculate RVSP Pulmonic Valve Not well visualized Pericardium normal Aorta Normal in size IVC Not well visualized CONCLUSIONS LV systolic function is normal with EF of 55-60% Grade 1 diastolic dysfunction Mild mitral regurgitation. Andrés Freeman MD (Electronically Signed) Final Date: 19 October 2024 15:30 S
--- NOTE | 2024-10-18 00:17 | CTR_ITS ---
PROCEDURE INFORMATION: Exam: CT Head Without Contrast Exam date and time: 10/18/2024 1:31 AM Age: 79 years old Clinical indication: Altered mental status/memory loss TECHNIQUE: Imaging protocol: Computed tomography of the head without contrast. Radiation optimization: All CT scans at this facility use at least one of these dose optimization techniques: automated exposure control; mA and/or kV adjustment per patient size (includes targeted exams where dose is matched to clinical indication); or iterative reconstruction. COMPARISON: CT head wo con* [id number] 06/18/2018 9:19 PM RADIATION DOSE METRICS: Total DLP (mGy-cm): 1188.88 FINDINGS: Brain: Evidence of chronic small-vessel ischemia. No hemorrhage. Cerebral ventricles: No ventriculomegaly. Paranasal sinuses: Visualized sinuses are unremarkable. No fluid levels. Mastoid air cells: Visualized mastoid air cells are well aerated. Bones: Unremarkable. No acute fracture. Soft tissues: Unremarkable. Vasculature: Calcified atherosclerosis. CT/CT head wo con* [id number] IMPRESSION: Senescent change. No acute abnormality.
[2024-10-18 00:19] LABS: Troponin 5 2HR Delta -0.41 ABS# (0-10)
[2024-10-18 00:41] LABS: NT Pro B Type Natriuretic Pept 180 pg/mL (0-450)
[2024-10-18] MEDS: lactated ringers 500 ML 999 ML IV (00:54)
[2024-10-18 01:57] LABS: Vitamin B12 413 pg/mL (232-1245)
--- NOTE | 2024-10-18 03:15 | ECG_ITS ---
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: : 1945 Requested By: Roderick Carbone Order Number: [id number] Enedina MD: RIKKI SIDDIQUI Measurements Intervals [place] Rate: 93 P: 30 DC: 187 QRS: -19 QRSD: 114 T: 70 QT: 364 QTc: 454 Interpretive Statements SINUS RHYTHM MODERATE INTRAVENTRICULAR CONDUCTION DELAY [110+ ms QRS DURATION] MODERATE VOLTAGE CRITERIA FOR LVH, CONSIDER NORMAL VARIANT [MEETS CRITERIA IN ONE OF: R(aVL), S(V1), R(V5), R(V5/V6)+S(V1)] NONSPECIFIC T-WAVE ABNORMALITY Compared to ECG 10/17/2024 22:07:18 Intraventricular conduction delay now present T-wave abnormality now present Sinus tachycardia no longer present Myocardial infarct finding no longer present Electronically Signed On 10-22-2024 23:53:54 [employer] by RIKKI SIDDIQUI [email or web address]
[2024-10-18 05:39] LABS: Basophils % 0.2 %; Eosinophils % 0.1 %; Hematocrit 42.5 % (36-47); Lymphocytes # 1.1 10^3/uL (0.8-4.8); Lymphocytes % 6.5 %; Mean Corpuscular HGB Conc 29.2 g/dL (30-55); Mean Corpuscular Hemoglobin 26.1 pg (27-33); Mean Corpuscular Volume 89.5 fl (85-98); Mean Platelet Volume 10.7 fL (7.4-10.4); Monocytes # 1.1 10^3/uL (0.2-0.9); Monocytes % 6.4 %; Neutrophils # 14.23 10^3/uL (1.8-7.7); Neutrophils % 86.3 %; Nucleated Red Blood Cells % 0 %; Platelet Count 186 10^3/cmm (157-399); Red Blood Count 4.75 10^6/uL (3.85-5.65); Red Cell Distribution Width 18.9 % (12.1-15.1); White Blood Count 16.49 10^3/uL (3.29-11.43)
[2024-10-18 05:58] LABS: Troponin 5 6HR 12.26 ng/L (0-10)
[2024-10-18 06:02] LABS: Blood Urea Nitrogen 13 mg/dL (8-23); C Reactive Protein 132.4 mg/L (0.0-4.9); Calcium 9.8 mg/dL (8.5-10.5); Carbon Dioxide 19 mmol/L (22-29); Chloride 96 mmol/L (98-107); Glucose 233 mg/dL (65-115); Magnesium 1.8 mg/dL (1.7-2.3); Osmolality Calculated 284 mOsm/kg (285-295); Phosphorus 2.2 mg/dL (2.5-4.5); Sodium 133 mmol/L (136-145)
[2024-10-18 06:14] LABS: Anion Gap 22.2 (5-19); Potassium 4.2 mmol/L (3.5-5.1); Troponin 5 6HR Delta -1.74 ng/L (0-12)
[2024-10-18] MEDS: amlodipine 10 mg Tablet PO (09:14)
[2024-10-18] MEDS: sennosides-docusate Tablet 1 TAB PO (09:14)
[2024-10-18] MEDS: doxycycline 100 mg Tablet PO (09:14)
[2024-10-18] MEDS: metoprolol succinate ER (24 HR) 25 mg Tablet PO (09:14)
[2024-10-18] MEDS: acetaminophen 500 mg Tablet PO (09:36)
--- NOTE | 2024-10-18 10:05 | PC.SOCIAL ---
IMM Update pg 2 of IMM Updated and reviewed w/ patient. Copy provided and copy dated, initialed and placed in chart.
[2024-10-18] MEDS: cefTRIAXone 1,000 MG in sodium chloride 0.9% (plus) 50 ML 100 MG IV (11:43)
[2024-10-18] MEDS: FUROsemide 10 mg/mL SDV 2mL 20 MG IVP ×2 (11:43→23:49)
--- NOTE | 2024-10-18 16:08 | P.PN_ITS ---
Subjective 2 Subjective: overnight labs and H&P reviewed. Patient wakes up to calling name. States that she feels better. She is able to tell me her correct age, her name. Unable to recall any other details. When asked about her leg swelling states that she was unaware of the same. Speaks a few basic short sentences in conversation. However overall disoriented. Medications: Reviewed: Yes Vitals/I&O/Wt Last Vital Signs Temp 97.8 F 10/18/24 15:38 Pulse 90 10/18/24 15:38 Resp 18 10/18/24 15:38 BP 172/87 10/18/24 15:38 Pulse Ox 100 10/18/24 15:38 O2 Del Method Room Air 10/18/24 15:38 O2 Flow Rate 1 10/17/24 22:17 10/18/24 10/18/24 10/18/24 06:59 14:59 22:59 Intake Total 720 / 720 Output Total 900 / 900 1600 / 2500 Balance -180 / -180 -1600 / -1780 Weight last 48 hrs Weight 106.912 kg Weight 113.398 kg Weight 113.398 kg Weight 45.359 kg Physical Exam 2 Narrative: General: No acute distress, AO x2 HEENT: PERRLA, pupils bilaterally equal and reactive, pallors not present Chest: Normal vesicular breath sounds, no added sounds, equal good air entry bilaterally CVS: S1-S2 regular, no murmurs, no tachycardia, no gallops, no rubs Abdomen: Soft, nontender, no organomegaly, bowel sounds present Neuro: No focal deficits, no facial deformity, AO x2 Data 10/18/24 05:35 10/18/24 05:35 Micro: Microbiology 10/17/24 23:41 Blood Culture - Preliminary Blood SPECIMEN COLLECTED 10/17/24 23:41 Blood Culture - Preliminary Blood SPECIMEN COLLECTED A&P Assessment and plan (1) Urinary tract infection: Qualifiers: Hematuria presence: with hematuria Urinary tract infection type: acute cystitis Qualified Code(s): N30.01 - Acute cystitis with hematuria (2) Acute alteration in mental status: (3) CHF exacerbation: (4) Bilateral pneumonia: Qualifiers: Lung location: unspecified part of lung Pneumonia type: due to unspecified organism Qualified Code(s): J18.9 - Pneumonia, unspecified organism (5) Sepsis: (6) New onset of congestive heart failure: Plan Altered mental status Metabolic encephalopathy related to sepsis, UTI and possible pneumonia Confused AO x [address] head Sepsis Criteria met with tachypnea tachycardia fever at the long-term Source seems to be UTI Considering CHF, only 500 mL IV fluid bolus given New onset CHF I do not see any previous echo: She has pulm edema, enlarged cardiac silhouette some edema of lower extremities Monitor urine output, start low-dose Lasix Requested echo Troponin with serial EKGs EKG not showing infarctive changes UTI Start ceftriaxone Abnormal UA noted Caballero catheter placed in the ER Possible pneumonia? I do believe her x-ray bilateral infiltrates are related to CHF, will request procalcitonin Will keep patient on doxycycline along ceftriaxone Respiratory panel is negative DNR/DNI as per the records from the long-term Will keep her on cardiac diet DVT prophylaxis: Heparin October 18, 2024 Troponin series overall without significant delta's. Less likely ACS. UA positive. Continue ceftriaxone. Pending echocardiogram. Continue diuresis with Lasix, increase to 20 mg IV every 12 hours. Closely monitor SONAM's and kidney function with diuresis. Follow urine culture. PDMP PDMP Reviewed: Not Reviewed Attestations 2 Medical Necessity Statement*: iv abx, iv diuresis, pending echo Coding Level of Care Code Acute Code for Chg Fwd Diagnoses Urinary tract infection N30.01 Hematuria presence: with hematuria Urinary tract infection type: acute cystitis Acute alteration in mental status R41.82 CHF exacerbation I50.9 Bilateral pneumonia J18.9 Lung location: unspecified part of lung Pneumonia type: due to unspecified organism Sepsis A41.9 New onset of congestive heart failure I50.9
[2024-10-18] MEDS: enoxaparin 40 mg/0.4 mL Syringe SUBCUT (16:51)
[2024-10-18 20:10] LABS: MRSA PCR OZH (swab) NOT DETECTED (Not Detecte)
[2024-10-18] MEDS: hyDRALAzine 20 mg/mL INJ 1 mL 10 MG IVP (20:56)
[2024-10-19 04:00] VITALS: BP 161/80; PULSE 84; RESP 19; TEMP 36.4; O2SAT 92
[2024-10-19] MEDS: hyDRALAzine 20 mg/mL INJ 1 mL 10 MG IVP (04:36)
[2024-10-19] MEDS: acetaminophen 500 mg Tablet PO (04:41)
[2024-10-19] MEDS: TRAMadol 50 mg Tablet PO (04:41)
[2024-10-19 04:51] LABS: Basophils % 0.3 %; Eosinophils % 0.1 %; Hematocrit 39.2 % (36-47); Lymphocytes # 1.9 10^3/uL (0.8-4.8); Lymphocytes % 13.7 %; Mean Corpuscular HGB Conc 29.3 g/dL (30-55); Mean Corpuscular Hemoglobin 26.4 pg (27-33); Mean Corpuscular Volume 90.1 fl (85-98); Mean Platelet Volume 11.1 fL (7.4-10.4); Monocytes # 1.1 10^3/uL (0.2-0.9); Monocytes % 7.7 %; Neutrophils # 10.59 10^3/uL (1.8-7.7); Neutrophils % 77.9 %; Nucleated Red Blood Cells % 0 %; Platelet Count 201 10^3/cmm (157-399); Red Blood Count 4.35 10^6/uL (3.85-5.65); Red Cell Distribution Width 19.3 % (12.1-15.1)
[2024-10-19 05:22] LABS: Alanine Aminotransferase 7 U/L (0-33); Albumin Level 3.5 g/dL (3.5-5.2); Alkaline Phosphatase 78 U/L (35-105); Anion Gap 15.6 (5-19); Aspartate Amino Transferase 11 U/L (0-32); Blood Urea Nitrogen 15 mg/dL (8-23); Calcium 9.1 mg/dL (8.5-10.5); Carbon Dioxide 24 mmol/L (22-29); Chloride 99 mmol/L (98-107); Creatinine Clr Calc Pharmacy 57.0775; Globulin 3.3 g/dL (1.3-4.6); Glucose 161 mg/dL (65-115); Osmolality Calculated 284 mOsm/kg (285-295); Potassium 3.6 mmol/L (3.5-5.1); Sodium 135 mmol/L (136-145); Total Bilirubin 0.4 mg/dL (0.15-1.2); Total Protein 6.8 g/dL (6.6-8.7)
[2024-10-19] MEDS: levothyroxine 125 mcg Tablet PO (06:06)
[2024-10-19 07:45] VITALS: BP 118/77; PULSE 77; RESP 16; TEMP 36.7; O2SAT 92
[2024-10-19] MEDS: sennosides-docusate Tablet 1 TAB PO (09:38)
[2024-10-19] MEDS: metoprolol succinate ER (24 HR) 25 mg Tablet PO (09:38)
[2024-10-19] MEDS: cefTRIAXone 1,000 MG in sodium chloride 0.9% (plus) 50 ML 100 MG IV (09:38)
[2024-10-19] MEDS: amlodipine 10 mg Tablet PO (09:38)
[2024-10-19 10:00] VITALS: PULSE 83; RESP 18; O2SAT 93
[2024-10-19 11:31] VITALS: BP 129/80; PULSE 71; RESP 16; TEMP 36.9; O2SAT 92
[2024-10-19] MEDS: FUROsemide 10 mg/mL SDV 2mL 20 MG IVP ×2 (12:42→23:06)
[2024-10-19 15:39] VITALS: BP 130/71; PULSE 76; RESP 16; TEMP 37; O2SAT 90
--- NOTE | 2024-10-19 17:09 | PM.PN ---
Subjective Subjective: Patient was responsive this morning. Able to sit up and have a basic conversation. However she is disoriented. Medications: Reviewed: Yes Vitals/I&O/Wt Last Vital Signs Temp 98.6 F 10/19/24 15:39 Pulse 76 10/19/24 15:39 Resp 16 10/19/24 15:39 BP 130/71 10/19/24 15:39 Pulse Ox 90 10/19/24 15:39 O2 Del Method Room Air 10/19/24 15:39 O2 Flow Rate 1 10/17/24 22:17 10/19/24 10/19/24 10/19/24 06:59 14:59 22:59 Intake Total 150 / 150 Output Total 850 / 3350 Balance -850 / -2450 150 / 150 Weight last 48 hrs Weight 105.778 kg Weight 106.912 kg Weight 113.398 kg Weight 113.398 kg Weight 45.359 kg Physical Exam Narrative: General: No acute distress, AO x2 HEENT: PERRLA, pupils bilaterally equal and reactive, pallors not present Chest: Normal vesicular breath sounds, no added sounds, equal good air entry bilaterally CVS: S1-S2 regular, no murmurs, no tachycardia, no gallops, no rubs Abdomen: Soft, nontender, no organomegaly, bowel sounds present Neuro: No focal deficits, no facial deformity, AO x2 Data 10/19/24 04:13 10/19/24 04:13 Micro: Microbiology 10/17/24 21:41 Urine Culture - Preliminary Urine,Clean Catch Gram Negative Rods 10/17/24 23:41 Blood Culture - Preliminary Blood NEGATIVE TO DATE 10/17/24 23:41 Blood Culture - Preliminary Blood NEGATIVE TO DATE A&P Assessment and plan (1) Urinary tract infection: Qualifiers: Hematuria presence: with hematuria Urinary tract infection type: acute cystitis Qualified Code(s): N30.01 - Acute cystitis with hematuria (2) Acute alteration in mental status: (3) CHF exacerbation: (4) Bilateral pneumonia: Qualifiers: Lung location: unspecified part of lung Pneumonia type: due to unspecified organism Qualified Code(s): J18.9 - Pneumonia, unspecified organism (5) Sepsis: (6) New onset of congestive heart failure: Plan Altered mental status Metabolic encephalopathy related to sepsis, UTI and possible pneumonia Confused AO x [address] head Sepsis Criteria met with tachypnea tachycardia fever at the [facility] Source seems to be UTI Considering CHF, only 500 mL IV fluid bolus given New onset CHF I do not see any previous echo: She has pulm edema, enlarged cardiac silhouette some edema of lower extremities Monitor urine output, start low-dose Lasix Requested echo Troponin with serial EKGs EKG not showing infarctive changes UTI Start ceftriaxone Abnormal UA noted Caballero catheter placed in the ER Possible pneumonia? I do believe her x-ray bilateral infiltrates are related to CHF, will request procalcitonin Will keep patient on doxycycline along ceftriaxone Respiratory panel is negative DNR/DNI as per the records from the [facility] Will keep her on cardiac diet DVT prophylaxis: Heparin October 18, 2024 Troponin series overall without significant delta's. Less likely ACS. UA positive. Continue ceftriaxone. Pending echocardiogram. Continue diuresis with Lasix, increase to 20 mg IV every 12 hours. Closely monitor SONAM's and kidney function with diuresis. Follow urine culture. October 19, 2024 Urine culture showing gram-negative rods, pending further identification. Continue ceftriaxone. WBC count trending down to 13,000 today. Patient is afebrile. Echocardiogram shows an normal LVEF of 55 to 60%, grade 1 diastolic dysfunction. Continuing to have persistent lower extremity swelling. Increase Lasix to 20 mg IV every 12 hours. Closely monitor kidney function. PDMP PDMP Reviewed: Not Reviewed Attestations Medical Necessity Statement*: Continue IV ceftriaxone while pending urine cultures. Continue IV diuresis. Check lower extremity Doppler to assess for possible DVT. Coding Level of Care Code Acute Code for [facility] Fwd Diagnoses Urinary tract infection N30.01 Hematuria presence: with hematuria Urinary tract infection type: acute cystitis Acute alteration in mental status R41.82 CHF exacerbation I50.9 Bilateral pneumonia J18.9 Lung location: unspecified part of lung Pneumonia type: due to unspecified organism Sepsis A41.9 New onset of congestive heart failure I50.9
--- NOTE | 2024-10-19 17:15 | USR_ITS ---
PROCEDURE INFORMATION: Exam: US Duplex Lower Extremity Veins, Bilateral Exam date and time: 10/19/2024 5:59 PM Age: 79 years old Clinical indication: Pain; Leg, upper; Bilateral; Additional info: Assess for dvt TECHNIQUE: Imaging protocol: Real-time duplex ultrasound of the bilateral extremities with 2-D wing scale, color Doppler flow and spectral waveform analysis including responses to compression and other maneuvers (when performed) with image documentation. Complete exam focused on the lower extremity veins. COMPARISON: No relevant prior studies available. FINDINGS: Right deep veins: Unremarkable. The common femoral, femoral, proximal profunda femoral and popliteal veins are patent without thrombus. Normal Doppler waveforms. Normal compressibility and/or augmentation response. Left deep veins: Unremarkable. The common femoral, femoral, proximal profunda femoral and popliteal veins are patent without thrombus. Normal Doppler waveforms. Normal compressibility and/or augmentation response. Superficial veins: Greater saphenous veins at the saphenofemoral junctions are patent bilaterally without thrombus. Soft tissues: Unremarkable. US/CV venous duplex [facility] [id number] IMPRESSION: No evidence of deep vein thrombosis.
[2024-10-19] MEDS: enoxaparin 40 mg/0.4 mL Syringe SUBCUT (17:55)
[2024-10-19 20:00] VITALS: BP 151/77; PULSE 83; RESP 19; TEMP 36.8; O2SAT 90
[2024-10-20] VITALS (8 sets, daily range): BP systolic 116–157; BP diastolic 70–82; PULSE 67–82; RESP 16–18; TEMP 36.5–37.2; O2SAT 90–94
[2024-10-20] MEDS: levothyroxine 125 mcg Tablet PO (06:00)
[2024-10-20 06:03] LABS: Basophils % 0.4 %; Eosinophils # 0.2 10^3/uL (0.0-0.8); Eosinophils % 1.7 %; Hematocrit 38.9 % (36-47); Lymphocytes # 1.7 10^3/uL (0.8-4.8); Lymphocytes % 17.8 %; Mean Corpuscular HGB Conc 30.1 g/dL (30-55); Mean Corpuscular Hemoglobin 26.4 pg (27-33); Mean Corpuscular Volume 87.6 fl (85-98); Mean Platelet Volume 10.8 fL (7.4-10.4); Monocytes # 0.8 10^3/uL (0.2-0.9); Monocytes % 8.4 %; Neutrophils # 6.83 10^3/uL (1.8-7.7); Neutrophils % 71.3 %; Nucleated Red Blood Cells % 0 %; Platelet Count 236 10^3/cmm (157-399); Red Blood Count 4.44 10^6/uL (3.85-5.65); Red Cell Distribution Width 19.3 % (12.1-15.1); White Blood Count 9.59 10^3/uL (3.29-11.43)
[2024-10-20 06:21] LABS: Alanine Aminotransferase 6 U/L (0-33); Albumin Level 3.5 g/dL (3.5-5.2); Alkaline Phosphatase 81 U/L (35-105); Anion Gap 14.4 (5-19); Aspartate Amino Transferase 9 U/L (0-32); Blood Urea Nitrogen 20 mg/dL (8-23); Calcium 9.2 mg/dL (8.5-10.5); Carbon Dioxide 28 mmol/L (22-29); Chloride 98 mmol/L (98-107); Creatinine Clr Calc Pharmacy 56.7825; Globulin 3.5 g/dL (1.3-4.6); Glucose 148 mg/dL (65-115); Osmolality Calculated 289 mOsm/kg (285-295); Potassium 3.4 mmol/L (3.5-5.1); Sodium 137 mmol/L (136-145); Total Bilirubin 0.3 mg/dL (0.15-1.2)
[2024-10-20] MEDS: TRAMadol 50 mg Tablet PO (07:11)
[2024-10-20] MEDS: acetaminophen 500 mg Tablet PO (07:11)
[2024-10-20] MEDS: cefTRIAXone 1,000 MG in sodium chloride 0.9% (plus) 50 ML 100 MG IV (09:52)
[2024-10-20] MEDS: amlodipine 10 mg Tablet PO (09:52)
[2024-10-20] MEDS: metoprolol succinate ER (24 HR) 25 mg Tablet PO (09:52)
[2024-10-20] MEDS: sennosides-docusate Tablet 1 TAB PO (09:52)
[2024-10-20] MEDS: FUROsemide 10 mg/mL SDV 2mL 20 MG IVP (12:34)
--- NOTE | 2024-10-20 16:16 | PM.PN ---
Subjective Subjective: much improved today. She is alert, awake, able to have a conversation. She had several visitors today which she is happy about. Medications: Reviewed: Yes Vitals/I&O/Wt Last Vital Signs Temp 98.1 F 10/20/24 15:37 Pulse 67 10/20/24 15:37 Resp 16 10/20/24 15:37 BP 133/71 10/20/24 15:37 Pulse Ox 91 10/20/24 15:37 O2 Del Method Room Air 10/20/24 15:37 O2 Flow Rate 1 10/17/24 22:17 10/20/24 10/20/24 10/20/24 06:59 14:59 22:59 Intake Total 290 / 290 Output Total 700 / 1200 Balance -700 / -930 290 / 290 Weight last 48 hrs Weight 104.825 kg Weight 105.778 kg Physical Exam Narrative: General: No acute distress, AO x3 HEENT: PERRLA, pupils bilaterally equal and reactive, pallors not present Chest: Normal vesicular breath sounds, no added sounds, equal good air entry bilaterally CVS: S1-S2 regular, no murmurs, no tachycardia, no gallops, no rubs Abdomen: Soft, nontender, no organomegaly, bowel sounds present Neuro: No focal deficits, no facial deformity, AO x3 Data 10/20/24 05:19 10/20/24 05:19 Micro: Microbiology 10/17/24 21:41 Urine Culture - Final Urine,Clean Catch Escherichia coli E coli M.I.C. RX --------- ------ * Amikacin <=16 S * Amoxicillin/Clavulanate <=8/4 S * Ampicillin >16 R * Ampicillin/Sulbactam <=8/4 S * Aztreonam <=4 S * Cefepime <=8 S * Ceftriaxone <=1 S * Cefuroxime <=4 S * Ciprofloxacin <=1 S * Gentamicin >8 R * Imipenem <=1 S * Levofloxacin <=2 S * Nitrofurantoin <=32 S * Tetracycline <=4 S * Tobramycin 8 I * Trimethoprim/Sulfamethoxazole >2/38 R * Piperacillin/Tazobactam <=16 S A&P Assessment and plan (1) Urinary tract infection: Qualifiers: Hematuria presence: with hematuria Urinary tract infection type: acute cystitis Qualified Code(s): N30.01 - Acute cystitis with hematuria (2) Acute alteration in mental status: (3) CHF exacerbation: (4) Bilateral pneumonia: Qualifiers: Lung location: unspecified part of lung Pneumonia type: due to unspecified organism Qualified Code(s): J18.9 - Pneumonia, unspecified organism (5) Sepsis: (6) New onset of congestive heart failure: Plan Altered mental status Metabolic encephalopathy related to sepsis, UTI and possible pneumonia Confused AO x [address] head Sepsis Criteria met with tachypnea tachycardia fever at the senior living Source seems to be UTI Considering CHF, only 500 mL IV fluid bolus given New onset CHF I do not see any previous echo: She has pulm edema, enlarged cardiac silhouette some edema of lower extremities Monitor urine output, start low-dose Lasix Requested echo Troponin with serial EKGs EKG not showing infarctive changes UTI Start ceftriaxone Abnormal UA noted Caballero catheter placed in the ER Possible pneumonia? I do believe her x-ray bilateral infiltrates are related to CHF, will request procalcitonin Will keep patient on doxycycline along ceftriaxone Respiratory panel is negative DNR/DNI as per the records from the senior living Will keep her on cardiac diet DVT prophylaxis: Heparin October 18, 2024 Troponin series overall without significant delta's. Less likely ACS. UA positive. Continue ceftriaxone. Pending echocardiogram. Continue diuresis with Lasix, increase to 20 mg IV every 12 hours. Closely monitor SONAM's and kidney function with diuresis. Follow urine culture. October 19, 2024 Urine culture showing gram-negative rods, pending further identification. Continue ceftriaxone. WBC count trending down to 13,000 today. Patient is afebrile. Echocardiogram shows an normal LVEF of 55 to 60%, grade 1 diastolic dysfunction. Continuing to have persistent lower extremity swelling. Increase Lasix to 20 mg IV every 12 hours. Closely monitor kidney function. Febrile 2024. Urine culture with E. coli. Continue ceftriaxone given susceptibility. PDMP PDMP Reviewed: Not Reviewed Coding Level of Care Code Acute Code for Chg Fwd Diagnoses Urinary tract infection N30.01 Hematuria presence: with hematuria Urinary tract infection type: acute cystitis Acute alteration in mental status R41.82 CHF exacerbation I50.9 Bilateral pneumonia J18.9 Lung location: unspecified part of lung Pneumonia type: due to unspecified organism Sepsis A41.9 New onset of congestive heart failure I50.9
[2024-10-20] MEDS: enoxaparin 40 mg/0.4 mL Syringe SUBCUT (18:32)
[2024-10-21] MEDS: TRAMadol 50 mg Tablet PO (01:08)
[2024-10-21] MEDS: acetaminophen 500 mg Tablet PO (01:09)
[2024-10-21 04:00] VITALS: BP 133/68; PULSE 70; RESP 18; TEMP 36.9; O2SAT 91
[2024-10-21] MEDS: levothyroxine 125 mcg Tablet PO (06:00)
[2024-10-21 07:49] VITALS: BP 148/85; PULSE 74; RESP 18; TEMP 36.6; O2SAT 92
[2024-10-21] MEDS: metoprolol succinate ER (24 HR) 25 mg Tablet PO (08:34)
[2024-10-21] MEDS: sennosides-docusate Tablet 1 TAB PO (08:34)
[2024-10-21] MEDS: amlodipine 10 mg Tablet PO (08:34)
[2024-10-21] MEDS: cefTRIAXone 1,000 MG in sodium chloride 0.9% (plus) 50 ML 100 MG IV (08:34)
[2024-10-21] MEDS: FUROsemide 40 mg Tablet PO (08:34)
[2024-10-21 09:29] VITALS: PULSE 83; RESP 16; O2SAT 91
--- NOTE | 2024-10-21 09:39 | PC.CHAP ---
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 visit [] Patient/Family/Request visit [] Outpatient visit [] Follow-up visit [] Physician referral [] Code/Alert [x] Routine visit [] Staff referral [] Actively dying [] Patient sleeping [] Family support [] [] Out of room [] Palliative care [] [] Receiving care in room [] Pre-surgical visit [] Trauma [] Long length of stay [] ICU visit [] Other: Relational/Emotional Strength [] Patient feels connected with others/family/visitors/staff [] Distress [] Loneliness/isolation [] Abandonment Spirituality of Patient [x] Person of Candice [] Attends Anabaptism of their Candice [x] Believes in Prayer [] Reads Bible or Faith materials [] There are Spiritual issues to be addressed Log Brander Interventions [x] Prayer [x] Active listening [] Non-anxious presence [] Spiritual/emotional support [] Crisis/trauma care [] Spiritual counseling [] Bereavement support [] Provided bereavement packet [] Provided Bible/devotional materials [] Provided toy/stuffed animal, coloring book to patient or family member [] Provided Communion [] Anointing/[place] [] Salvation [x] Completed spiritual assessment [] Other: Impact on Illness or Injury [] Angry [] Fearful [] Anxious [] Often cries [] Exhaustion [] Unable to work [] Unable to attend gnosticist [] Unable to walk/stand [] Unable to read [] Unable to drive [] Unable to eat/drink [] Unable to sleep [] Unable to be with family [] Patient intubated [] Other: Summary Time spent with patient 20 min
[2024-10-21 12:00] VITALS: BP 121/77; PULSE 80; RESP 18; TEMP 36.5; O2SAT 93
--- NOTE | 2024-10-21 12:54 | P.DS_ITS ---
Discharge Providers Date of Admission: 10/18/24 00:00 Date of Discharge: October 21, 2024 Attending Provider at Admission: Jase Madrid MD Attending Provider at Discharge: Caroline Villar MD Primary Care Provider: Sean Warren DO Diagnoses at Discharge Discharge Diagnosis (1) Urinary tract infection: Status: Acute Qualifiers: Hematuria presence: with hematuria Urinary tract infection type: acute cystitis Qualified Code(s): N30.01 - Acute cystitis with hematuria (2) Acute alteration in mental status: Status: Resolved (3) CHF exacerbation: Status: Resolved (4) Bilateral pneumonia: Status: Resolved Qualifiers: Lung location: unspecified part of lung Pneumonia type: due to unspecified organism Qualified Code(s): J18.9 - Pneumonia, unspecified organism (5) Sepsis: Status: Resolved (6) New onset of congestive heart failure: Status: Acute Reason for Visit Reason for Visit: FEVER Brief History: Kelsi Zamora is a 79 year old female with history of hypertension, hypothyroidism, resident of [facility] presented for fever lethargy fatigue generalized weakness. Patient refused her dinner because she was very lethargic. She was sent to the hospital for further evaluation. Temperature noted was around 101 at the [place], she is tachypneic tachycardic with leukocytosis without endorgan damage, she meets criteria for sepsis, I will give her septic bolus she has been given antibiotics blood and urine culture taken as per her weight she would need 1300 mL of septic bolus however considering signs of pulm edema on chest x-ray I will give her 500 mL IV fluids only, she is normotensive, oriented to herself only no skin mottling UA consistent with UTI: Caballero catheter has been placed Hospital Course Hospital Course Patient was admitted for altered mental status and confusion secondary to UTI with possible pneumonia. Urine culture growing gram-negative rods. She was placed on ceftriaxone. Eventually mental status improved and she was discharged back to nursing facility. There was also suspicion of diastolic heart failure exacerbation for which she was placed on 20 Lasix daily along with a 2 potassium. She has to follow-up with cardiology and her primary care doctor going forward. Patient completed 3 days of IV ceftriaxone inpatient. Physical Exam Narrative: General: No acute distress, AO x3 HEENT: PERRLA, pupils bilaterally equal and reactive, pallors not present Chest: Normal vesicular breath sounds, no added sounds, equal good air entry bilaterally CVS: S1-S2 regular, no murmurs, Abdomen: Soft, nontender, no organomegaly, bowel sounds present Neuro: No focal deficits, no facial deformity, AO x3 Discharge Data Studies Completed and Pending Completed Studies During Hospitalization Category Date Time Status CT head wo con* [id number] Routine Cat Scan 10/18/24 00:17 Completed XR chest 1V portable [id number] Stat Exams 10/17/24 21:11 [place] [id number] Routine Ultrasound 10/19/24 17:15 Completed CV. echo complete* [id number] Routine Ultrasound 10/18/24 00:15 Completed Pending at discharge Category Date Time Status Blood Culture Stat Lab 10/17/24 23:41 Results Radiology Impressions Chest X-Ray 10/17/24 21:11 IMPRESSION: 1. Bibasilar lung opacities could relate to atelectasis, effusions, or pneumonia, worse on the left. 2. Mild pulmonary edema. 3. Mildly enlarged pericardial silhouette. Head CT 10/18/24 00:17 IMPRESSION: Senescent change. No acute abnormality. Venous Duplex 10/19/24 17:15 IMPRESSION: No evidence of deep vein thrombosis. Laboratory Results WBC 9.59 10^3/uL (3.29-11.43) 10/20/24 05:19 RBC 4.44 10^6/uL (3.85-5.65) 10/20/24 05:19 Hgb 11.70 g/dL (11.27-16.99) 10/20/24 05:19 Hct 38.9 % (36-47) 10/20/24 05:19 MCV 87.6 fl (85-98) 10/20/24 05:19 MCH 26.4 pg (27-33) L 10/20/24 05:19 MCHC 30.1 g/dL (30-55) 10/20/24 05:19 RDW 19.3 % (12.1-15.1) H 10/20/24 05:19 Plt Count 236 10^3/cmm (157-399) 10/20/24 05:19 MPV 10.8 fL (7.4-10.4) H 10/20/24 05:19 Neut % (Auto) 71.3 % 10/20/24 05:19 Lymph % (Auto) 17.8 % 10/20/24 05:19 [place] % (Auto) 8.4 % 10/20/24 05:19 Eos % (Auto) 1.7 % 10/20/24 05:19 Baso % (Auto) 0.4 % 10/20/24 05:19 Neut # (Auto) 6.83 10^3/uL (1.8-7.7) 10/20/24 05:19 Lymph # (Auto) 1.7 10^3/uL (0.8-4.8) 10/20/24 05:19 [place] # (Auto) 0.8 10^3/uL (0.2-0.9) 10/20/24 05:19 Eos # (Auto) 0.2 10^3/uL (0.0-0.8) 10/20/24 05:19 Baso # (Auto) 0.0 10^3/uL (0.0-0.1) 10/20/24 05:19 Nucleated RBC % (auto) 0 % 10/20/24 05:19 Nucleated RBCs # 0.0 /100WBC 10/20/24 05:19 Sodium 137 mmol/L (136-145) 10/20/24 05:19 Potassium 3.4 mmol/L (3.5-5.1) L 10/20/24 05:19 Chloride 98 mmol/L (98-107) 10/20/24 05:19 Carbon Dioxide 28 mmol/L (22-29) 10/20/24 05:19 Anion Gap 14.4 (5-19) 10/20/24 05:19 BUN 20 mg/dL (8-23) 10/20/24 05:19 Creatinine 0.9 mg/dL (0.5-0.9) 10/20/24 05:19 GFR Calculation Not Reportable 10/20/24 05:19 Glucose 148 mg/dL (65-115) H 10/20/24 05:19 Calculated Osmolality 289 mOsm/kg (285-295) 10/20/24 05:19 Lactic Acid 2.2 mmol/L (0.5-2.2) 10/17/24 21:47 Lactic Acid (Sepsis) 2.2 mmol/L (0.5-2.2) 10/17/24 23:41 Calcium 9.2 mg/dL (8.5-10.5) 10/20/24 05:19 Phosphorus 2.2 mg/dL (2.5-4.5) L 10/18/24 05:35 Magnesium 1.8 mg/dL (1.7-2.3) 10/18/24 05:35 Total Bilirubin 0.3 mg/dL (0.15-1.2) 10/20/24 05:19 AST 9 U/L (0-32) 10/20/24 05:19 ALT 6 U/L (0-33) 10/20/24 05:19 Alkaline Phosphatase 81 U/L (35-105) 10/20/24 05:19 Troponin T Baseline 14 ng/L (0-10) H 10/17/24 21:47 Troponin T 120 Minute 13.59 ng/L (0-10) H 10/17/24 23:41 Delta Troponin T -0.41 ABS# (0-10) L 10/17/24 23:41 Troponin T Hi Sens 6Hr 12.26 ng/L (0-10) H 10/18/24 05:35 Troponin T Hi Sens 6Hr Delta -1.74 ng/L (0-12) L 10/18/24 05:35 C-Reactive Protein 132.4 mg/L (0.0-4.9) H 10/18/24 05:35 NT-Pro-B Natriuret Pep 180 pg/mL (0-450) 10/17/24 22:49 Total Protein 7.0 g/dL (6.6-8.7) 10/20/24 05:19 Albumin 3.5 g/dL (3.5-5.2) 10/20/24 05:19 Globulin 3.5 g/dL (1.3-4.6) 10/20/24 05:19 Vitamin B12 413 pg/mL (232-1245) 10/17/24 23:46 Procalcitonin 0.26 ng/mL (0-0.5) 10/17/24 22:49 TSH 1.36 uIU/mL (0.27-4.20) 10/17/24 22:49 Urine Color Yellow (Yellow) 10/17/24 21:41 Urine Appearance Turbid (CLEAR) A 10/17/24 21:41 Urine pH 6.5 (5-7) 10/17/24 21:41 Ur Specific [place] 1.018 (1.005-1.030) 10/17/24 21:41 Urine Protein Trace (Negative) A 10/17/24 21:41 Urine Glucose (UA) Trace (Normal) H 10/17/24 21:41 Urine Ketones Negative (Negative) 10/17/24 21:41 Urine Blood 1+ (Negative) A 10/17/24 21:41 Urine Nitrate Negative (Negative) 10/17/24 21:41 Urine Bilirubin Negative (Negative) 10/17/24 21:41 Urine Urobilinogen 1.0 mg/dL (Negative) 10/17/24 21:41 Ur Leukocyte Esterase 1+ (Negative) A 10/17/24 21: Urine RBC 3-5 /hpf (0-2) 10/17/24 21:41 Urine WBC 40-55 /hpf (0-5) H 10/17/24 21:41 Ur Squamous Epith Cells None /hpf (0-5) 10/17/24 21:41 Amorphous Sediment Not Reportable 10/17/24 21:41 Urine Bacteria 4+ /hpf (NONE) H 10/17/24 21:41 Nasal MRSA (PCR) Not detected (Not Detecte) 10/18/24 18:45 Influenza A (PCR) Negative (Negative) 10/17/24 22:15 Influenza Type B (PCR) Negative (Negative) 10/17/24 22:15 RSV (PCR) Negative (Negative) 10/17/24 22:15 SARS-CoV-2 (PCR) Negative (Negative) 10/17/24 22:15 Vitals Last Vital Signs Temp 97.7 F 10/21/24 12:00 Pulse 80 10/21/24 12:00 Resp 18 10/21/24 12:00 BP 121/77 10/21/24 12:00 Pulse Ox 93 10/21/24 12:00 O2 Del Method Room Air 10/21/24 12:00 O2 Flow Rate 1 10/17/24 22:17 Discharge Plan Discharge Patient Disposition: Xfer SNF Condition: Stable Prescriptions: New furosemide 40 mg Tablet 20 mg PO DAILY@0800 30 Days Qty: 30 0RF potassium chloride 8 mEq capsule, extended release 8 meq PO DAILY Qty: 30 0RF cefdinir 300 mg capsule 300 mg PO BID 3 Days Qty: 6 0RF Continued tramadol 50 mg tablet 50 mg PO Q12H PRN (Reason: Pain) nystatin-triamcinolone 100,000-0.1 unit/g-% cream 1 applic TOPICAL TID PRN (Reason: Skin Irritation) albuterol sulfate 90 mcg/actuation HFA aerosol inhaler 2 puff INHALATION Q4H PRN (Reason: Wheezing) acetaminophen 325 mg Tablet 650 mg PO Q4H PRN (Reason: Pain) sennosides-docusate sodium [Senna-S] 8.6-50 mg Tablet 1 tab-cap PO DAILY PRN (Reason: Constipation) magnesium hydroxide [Milk of Magnesia] 400 mg/5 mL Suspension 30 ml PO DAILY PRN (Reason: Constipation) bisacodyl 10 mg Suppository 10 mg CA DAILY PRN (Reason: Constipation) calcium carbonate [Tums] 200 mg calcium (500 mg) Tablet,Chewable 200 mg PO QID PRN (Reason: Heartburn) Enema 19-7 gram/118 mL Enema 118 ml CA DAILY PRN (Reason: Constipation) nystatin [Nyamyc] 100,000 unit/gram Powder See Rx Instructions .ROUTE .COMPLEX Rx Instructions: Apply to abdominal folds and under breasts twice daily for red yeasty area. levothyroxine 50 mcg tablet 50 mcg PO QAM nystatin 100,000 unit/gram powder See Rx Instructions .ROUTE .COMPLEX Rx Instructions: Apply to affected areas under abdominal folds as needed for itching. Clear Eyes Natural Tears 0.5-0.6 % Drops 1 drp OPHTHALMIC (EYE) Q6H PRN (Reason: redness or itchy eyes) Discontinued acetaminophen 325 mg Tablet 650 mg PO BID Discharge Orders: Discharge Order (Routine); Ordered 10/21/24 Ordered By: Caroline Villar Other Ambulatory Orders: Basic Metabolic Panel (Routine) Timeframe: 1 Week Facility: [facility] - Location: Lab - Main Lab Ordered By: Caroline Villar Complete Blood Count w/Auto (Routine) Timeframe: 1 Week Location: Determined by Patient Ordered By: Caroline Villar Referrals: Andrés Freeman M.D [Physician] - 10/25/24 10:30 am Sean Warren DO [Primary Care Provider] - 4-7 days Discharge Diet: Cardiac Discharge Activity: Resume usual activity Patient Instructions: Furosemide (By mouth) (Lasix), Potassium Chloride (By mouth) Discharge Attestations Time Spent in Discharge Care*: greater than 30 min Quality Metrics Clinical Quality Measures [ No reported AMI, CVA or VTE this stay] Coding Level of Care Code Acute Code for Chg Fwd Diagnoses Urinary tract infection N30.01 Hematuria presence: with hematuria Urinary tract infection type: acute cystitis Acute alteration in mental status R41.82 CHF exacerbation I50.9 Bilateral pneumonia J18.9 Lung location: unspecified part of lung Pneumonia type: due to unspecified organism Sepsis A41.9 New onset of congestive heart failure I50.9
--- NOTE | 2024-10-21 13:50 | PC.NURSE ---
This nurse called report to [facility] @[id number]. Transport expected to be here around 1400
--- NOTE | 2024-10-21 13:56 | PC.NURSE ---
Upon calling report to [facility] [facility], patient care nurse stated she believed patients negrete was a chronic negrete. This nurse could not find that information in our records, however, it was noted that pt had a diagnosis of overactive bladder, stage 3 chronic kidney disease and dependence on other enabling tubes. Transport is expected to be here at any moment to pickup pt. This nurse will leave negrete catheter in place unless directed otherwise by Dr. Villar.
[2024-10-21 15:09] VITALS: BP 120/74; PULSE 82; O2SAT 92
--- NOTE | 2024-10-21 15:51 | PC.SOCIAL ---
IMM updated IMM dated and initialed, copy given to patient and copy placed in chart.
== END 2024-10-21 15:20 | disposition skilled nursing facility (03) | DRG 871 ==
LOC: ER 23:57 → ER IP 10-18 00:02 → MEDSURG 10-18 06:56
PROVIDERS: Student in an Organized Health Care Education/Training Program; Admitting Provider Internal Medicine; Emergency Provider Emergency Medicine; PCP Internal Medicine; Visit Provider Internal Medicine
DX: A41.9 Sepsis, unspecified organism (principal); G93.41 Metabolic encephalopathy; I50.33 Acute on chronic diastolic (congestive) heart failure; J18.9 Pneumonia, unspecified organism; N30.01 Acute cystitis with hematuria; I13.0 Hypertensive heart and chronic kidney disease with heart failure and stage 1 through stage 4 chronic kidney disease, or unspecified chronic kidney disease; B96.20 Unspecified Escherichia coli [E. coli] as the cause of diseases classified elsewhere; N18.9 Chronic kidney disease, unspecified; E03.9 Hypothyroidism, unspecified; G30.9 Alzheimer's disease, unspecified; F02.80 Dementia in other diseases classified elsewhere, unspecified severity, without behavioral disturbance, psychotic disturbance, mood disturbance, and anxiety; Z66 Do not resuscitate
CPT/HCPCS: 36415; 70450; 71045; 80048; 80053; 81001; 82607; 83605; 83735; 83880; 84100; 84145; 84443; 84484; 85025; 86140; 87040; 87077; 87086; 87186; 87637; 93005; 93306; 93970; 96365; 96372; 97163; 97165; 97530; 97535; 99285; J0360; J0696; J1650; J1940; J2543; J7120